=== PATIENT | female | born 1975 | race Caucasian/White ===

== ENCOUNTER → 2017-01-02 | Outpatient (CLI) | payer BC | END | disposition home or self-care (01) | LOC: LABWHC1 17:09 | PROVIDERS: ATTEND Clinical Nurse Specialist Women's Health | DX: N92.6 Irregular menstruation, unspecified (principal) | CPT/HCPCS: 36415; 83001 ==

== ENCOUNTER → 2018-01-21 | Outpatient (CLI) | payer BC ==
--- NOTE | 2018-01-25 07:57 | MM ---
Reason for exam: screening (asymptomatic). Last mammogram was performed 14 years and 11 months ago. History: Patient is nulliparous. Reductions of both breasts, 2015. Took hormonal contraceptives for 10 years. Physical Findings: A clinical breast exam by your physician is recommended on an annual basis and results should be correlated with mammographic findings. MG 3D Screening Mammo W/Cad Bilateral CC and MLO view(s) were taken. No prior studies available for comparison. There are scattered fibroglandular densities. No significant changes when compared with prior studies. ASSESSMENT: Benign, BI-RAD 2 RECOMMENDATION: Routine screening mammogram of both breasts in 1 year.
== END | disposition home or self-care (01) ==
LOC: RADMAMWWP 16:15
PROVIDERS: ATTEND Obstetrics & Gynecology
DX: Z12.31 Encounter for screening mammogram for malignant neoplasm of breast (principal)
CPT/HCPCS: 77063; 77067

== ENCOUNTER → 2019-02-22 | Outpatient (CLI) | payer BC ==
--- NOTE | 2019-02-24 11:31 | MM ---
Reason for exam: screening (asymptomatic). Last mammogram was performed 1 year and 1 month ago. History: Patient is nulliparous. Reductions of both breasts, 2015. Took hormonal contraceptives for 10 years. Physical Findings: A clinical breast exam by your physician is recommended on an annual basis and results should be correlated with mammographic findings. MG 3D Screening Mammo W/Cad Bilateral CC and MLO view(s) were taken. Prior study comparison: January 21, 2018, bilateral MG 3d screening mammo w/cad. March 07, 2003, bilateral diagnostic mammogram. There are scattered fibroglandular densities. ASSESSMENT: Incomplete: need additional imaging evaluation, BI-RAD 0 RECOMMENDATION: Ultrasound of the left breast. (palpable) Manage on a clinical basis with regard to palpable area. [facility] will attempt to contact patient to return for ultrasound.
== END | disposition home or self-care (01) ==
LOC: RADMAMWWP 16:40
PROVIDERS: ATTEND Family Medicine
DX: Z12.31 Encounter for screening mammogram for malignant neoplasm of breast (principal)
CPT/HCPCS: 77063; 77067

== ENCOUNTER → 2019-03-10 | Outpatient (CLI) | payer BC ==
--- NOTE | 2019-03-10 09:40 | USB ---
Reason for exam: additional evaluation requested from abnormal screening. History: Patient is nulliparous. Reductions of both breasts, 2015. Took hormonal contraceptives for 10 years. Indicated problem(s): lump or thickening in the left breast. Physical Findings: Nurse Summary: 1cm movable nodule in the left breast at 9 o'clock, 0.5cm movable nodule in the left breast at 6 o'clock and a 0.5cm nodule in the left breast at 6 o'clock (nurse cw). US Breast Workup LT Left complete breast ultrasound includes all four quadrants, the retroareolar region and axilla. Finding demonstrates a 6 x 2 x 5mm oval, hypoechoic lesion at 6 o'clock. These results were verbally communicated with the patient and result sheet given to the patient on 03/10/19. ASSESSMENT: Probably benign, BI-RAD 3 RECOMMENDATION: Ultrasound of the left breast in 6 months.
== END | disposition home or self-care (01) ==
LOC: RADUSWWP 08:15
PROVIDERS: ATTEND Family Medicine
DX: R92.8 Other abnormal and inconclusive findings on diagnostic imaging of breast (principal)

== ENCOUNTER → 2019-09-09 | Outpatient (CLI) | payer BC ==
--- NOTE | 2019-09-09 11:25 | USB ---
Reason for exam: clinical finding. History: Patient is nulliparous. Reductions of both breasts, 2015. Took hormonal contraceptives for 10 years. Indicated problem(s): palpable abnormality and lump or thickening in the left breast. Physical Findings: Nurse Summary: 6 o'clock 0.5cm, 12 o'clock 1.5cm (nurse dw). US Breast Limited LT Left limited breast ultrasound including focal area of concern, retroareolar and axilla demonstrates a 1.0 x 0.5 x 1.0cm angular, solid, vascular lesion at 7 o'clock, prior 0.6 x 0.2 x 0.5cm, enlarged, biopsy recommended and a 0.5 x 0.3 x 0.4cm angular, hypoechoic lesion at 10 o'clock, reassess at time of biopsy, cystic nature versus solid. Second biopsy may be necessary. These results were verbally communicated with the patient and result sheet given to the patient on 09/09/19. ASSESSMENT: Suspicious, BI-RAD 4 RECOMMENDATION: Ultrasound core biopsy of the left breast. Called Dr. Uriarte's office with mammographic findings and has scheduled an appointment for the patient for 10/27/19 at 10:[address] Coleamn. Biopsy schedueld for 10/04/19. PRELIMINARY REPORT CALLED AND FAXED TO DR. COLEMAN ON 09/09/19.
== END | disposition home or self-care (01) ==
LOC: RADUSWWP 07:05
PROVIDERS: ATTEND Obstetrics & Gynecology
DX: R92.8 Other abnormal and inconclusive findings on diagnostic imaging of breast (principal)

== ENCOUNTER → 2019-10-04 | Day surgery (SDC) | payer BC ==
[2019-10-04 11:39] VITALS: RESP 16; TEMP 97.6; BMI 36.3
[2019-10-04 13:17] VITALS: BP 110/70; PULSE 68
--- NOTE | 2019-10-07 14:17 | USB ---
US Breast Needle Core LT Radiologist: Hilario Lopez M.D. Radiologis ULTRASOUND GUIDED CORE BIOPSY LEFT BREAST LESIONS: CLINICAL HISTORY: Request for core biopsy of the left breast 7:00 and 10:00 lesions FINDINGS: The procedure was explained to the patient. The risks, complications, benefits and alternatives were discussed and any questions were answered. Informed consent was obtained. Patient was placed supine on the ultrasound table and prepped and draped in the usual sterile fashion. Utilizing a 25 gauge needle, five passes were made into each of the requested nodules. Clip was placed post biopsy for each nodule. Patient is and postprocedural mammogram was not performed. Patient was stable throughout the procedure. Pathology is pending. All elements of maximal barrier and sterile technique were utilized. IMPRESSION: 1. Successful ultrasound guided core biopsy of 2 left-sided breast nodules as requested. Pathology pending. Pathology Results: Benign A. LEFT BREAST, 7:00, ULTRASOUND GUIDED CORE BIOPSY: Lactating adenoma (nodular lactational hyperplasia). B. LEFT BREAST, 10:00, ULTRASOUND GUIDED CORE BIOPSY: Lactating adenoma (nodular lactational hyperplasia). RECOMMENDATION: Ultrasound of the left breast in 6 months. MTDD
== END ==
LOC: RADUSWWP 11:22
PROVIDERS: ATTEND Surgery
DX: O26.899 Other specified pregnancy related conditions, unspecified trimester (principal); D24.2 Benign neoplasm of left breast; Z3A.00 Weeks of gestation of pregnancy not specified
CPT/HCPCS: 88305; 19083; 19084; A4648; J2001

== ENCOUNTER 2020-03-01 15:41 | Inpatient (IN) | payer BC ==
[2020-03-01] MEDS ORDERED: LIDOCAINE 0.5% (PF) 5 MG/ML (50 ML SDV) SQ PRN (15:51)
[2020-03-01] MEDS ORDERED: TERBUTALINE 1 MG/ML VIAL SQ PRN (15:51)
[2020-03-01] MEDS ORDERED: CARBOPROST TROMETHAMINE 250 MCG/ML 1 ML AMP IM PRN (15:51)
[2020-03-01] MEDS ORDERED: OXYTOCIN 10 UNIT/ML 1 ML VIAL IM PRN (15:51)
[2020-03-01] MEDS ORDERED: METHYLERGONOVINE 0.2 MG/ML 1 ML AMP IM PRN (15:51)
[2020-03-01] MEDS: LACTATED RINGERS 1,000 ML IV SCH (16:08)
[2020-03-01 16:32] LABS: Basophils % (A) 0 %; Eosinophils # (A) 0.2 k/uL (0-0.7); Eosinophils % (A) 2 %; HCT 36.7 % (34.0-46.0); Lymphocytes % (A) 17 %; MCH 28.8 pg (25.0-35.0); MCHC 32.8 g/dL (31.0-37.0); MCV 87.9 fL (80.0-100.0); Mean Platelet Volume 8.7; Monocytes # (A) 0.5 k/uL (0-1.0); Monocytes % (A) 5 %; Neutrophils # (A) 8.5 k/uL (1.3-7.7); Neutrophils % (A) 75 %; Platelet Count 246 k/uL (150-450); RBC 4.18 m/uL (3.80-5.40); RDW 14.1 % (11.5-15.5); WBC 11.4 k/uL (3.8-10.6)
[2020-03-01] MEDS ORDERED: BUTORPHANOL 1 MG/ML 1 ML VIAL IV PRN (17:28)
--- NOTE | 2020-03-01 17:28 | P.HPOB ---
History of Present Illness H&P Date: 03/01/20 Chief Complaint: IUP at 40 3/7 weeks, PROM This is a 45-year-old 1 para 0 at 40-3/7 weeks with an estimated due date of 02/27/2020 that presents to labor and delivery with complaints of rupture of membranes clear in nature at 1430. Patient denies contractions at this time. Patient has been receiving routine care is been complicated by a fibroid uterus which has been being followed closely. Patient has known AMA elected genetic testing which was negative. Patient has a history of chronic hypertension that has been well controlled. Patient has been eating followed for SGA, last ultrasound revealing estimated weight to be in the 35th percentile with normal RAIN. On bloodwork patient has a blood type of O+, rubella immune, RPR nonreactive, hepatitis B surface antigen negative, HIV negative, GC/CT negative, she did fail her 1 hour gestational diabetes screen but subsequently passed her 3 hour. Informaseq test was noted to be negative. Patient had a negative group beta strep screen on 02/03/2020. Review of Systems Constitutional: Denies chills, Denies fatigue Ears, nose, mouth and throat: Denies headache Cardiovascular: Reports leg edema Respiratory: Denies dyspnea Gastrointestinal: Denies nausea, Denies vomiting Genitourinary: Reports Past Medical History Past Medical History: GERD/Reflux, Hypertension, Sleep Apnea/CPAP/BIPAP, Thyroid Disorder Additional Past Medical History / Comment(s): patient currently History of Any Multi-Drug Resistant Organisms: None Reported Past Surgical History: Breast Surgery Additional Past Surgical History / Comment(s): breast reduction 2002, Plantar faschitis surgery Past Anesthesia/Blood Transfusion Reactions: No Reported Reaction Past Psychological History: No Psychological Hx Reported Smoking Status: Never smoker Past Alcohol Use History: Occasional Additional Past Alcohol Use History / Comment(s): occassional when not Past Drug Use History: None Reported - Past Family History Mother Family Medical History: Cancer Medications and Allergies Home Medications Medication Instructions Recorded Confirmed Type Calcium Polycarbophil [Fibercon] 625 mg PO DAILY 09/19/19 03/01/20 History Labetalol [Trandate] 100 mg PO DAILY 09/19/19 03/01/20 History Omeprazole [PriLOSEC] 20 mg PO DAILY 09/19/19 03/01/20 History Pnv,Calcium 72/Iron/Folic Acid 1 each PO DAILY 09/19/19 03/01/20 History [ Plus Tablet] Thyroid,Pork [Medical Associate Thyroid] 60 mg PO DAILY 09/19/19 03/01/20 History Allergies Allergy/AdvReac Type Severity Reaction Status Date / Time No Known Allergies Allergy Verified 03/01/20 15:49 Exam Osteopathic Statement: *. No significant issues noted on an osteopathic structural exam other than those noted in the History and Physical/Consult. Vital Signs Temp Pulse Resp BP 03/01/20 15:48 97.4 F L 69 16 120/79 Intake and Output 03/01/20 03/01/20 03/01/20 06:59 14:59 22:59 Other: Weight 104.326 kg Targeted physical exam is performed in this date and director ship a well-nourished well-developed obese female in no acute distress, breathing is noted to be nonlabored, heart has regular rhythm, abdomen is gravid, on cervical exam she is fingertip/50/-3 soft and posterior. heart tones are noted to be category 1 and she is kirti irregularly. Results Result Diagrams: 03/01/20 16:08 Abnormal Lab Results - Last 24 Hours (Table) 03/01/20 Range/Units 16:08 WBC 11.4 H (3.8-10.6) k/uL Neutrophils # 8.5 H (1.3-7.7) k/uL Assessment and Plan (1) Post-dates Current Visit: Yes Status: Acute Code(s): O48.0 - POST-TERM SNOMED Code(s): 51270443 (2) PROM (premature rupture of membranes) Current Visit: Yes Status: Acute Code(s): O42.90 - TERESA ROM, 7TH0 BETW RUPT & ONST LABR, UNSP WEEKS OF GEST SNOMED Code(s): 52959096 Plan: Patient is admitted to labor and delivery for anticipated spontaneous vaginal delivery. Patient has noted clear fluid and negative group beta strep status therefore we will watch for onset of labor. If she should not go into labor on her own Pitocin augmentation of labor with will be begun. If she is ruptured at 12 hours we will plan to start antibiotics for prophylaxis
[2020-03-01] MEDS: OXYTOCIN 30 UNITS/500 ML NS 30 UNIT in SALINE 1 500ML.BAG IV SCH (20:27)
[2020-03-02] MEDS: LACTATED RINGERS 1,000 ML IV SCH ×2 (00:09→09:16)
[2020-03-02] MEDS ORDERED: AMPICILLIN 2,000 MG in SODIUM CHLORIDE 0.9% 100 ML IVPB STA (02:20)
[2020-03-02] MEDS: AMPICILLIN 1,000 MG in SODIUM CHLORIDE 0.9% 50 ML IVPB SCH ×2 (06:17→10:15)
[2020-03-02] MEDS: THYROID, PORK 30 MG TAB PO SCH (08:54)
[2020-03-02] MEDS ORDERED: CITRIC ACID-SODIUM CITRATE 15 ML CUP PO ONE ×2 (10:58→11:20)
[2020-03-02] MEDS ORDERED: NALBUPHINE 10 MG/ML (1 ML AMP) ONE (11:34)
[2020-03-02] MEDS ORDERED: OXYTOCIN 10 UNIT/ML 1 ML VIAL ONE (11:34)
[2020-03-02] MEDS ORDERED: ONDANSETRON 4 MG/2 ML VIAL ONE (11:34)
[2020-03-02] MEDS ORDERED: MORPHINE SULFATE (PF) 0.3 MG/0.3 ML SYR ONE (11:34)
[2020-03-02] MEDS ORDERED: ZOLPIDEM 5 MG TAB PO PRN (12:29)
[2020-03-02] MEDS ORDERED: diphenhydrAMINE 50 MG/ML 1 ML VIAL IVP PRN ×2 (12:29)
[2020-03-02] MEDS ORDERED: diphenhydrAMINE 25 MG CAP PO PRN (12:29)
[2020-03-02] MEDS ORDERED: METOCLOPRAMIDE 5 MG/ML 2 ML VIAL IVP PRN (12:29)
[2020-03-02] MEDS ORDERED: SIMETHICONE 80 MG CHEWABLE PO PRN (12:29)
[2020-03-02] MEDS ORDERED: HYDROcodone/APAP 5-325MG 1 EACH TAB PO PRN (12:29)
[2020-03-02] MEDS ORDERED: ACETAMINOPHEN IV (For NPO) 1,000 MG in EMPTY BAG 1 BAG IVPB ONE (12:29)
[2020-03-02] MEDS ORDERED: NALOXONE 0.4 MG/ML 1 ML VIAL IV PRN (12:29)
[2020-03-02] MEDS ORDERED: diphenhydrAMINE 50 MG CAP PO PRN (12:29)
[2020-03-02] MEDS ORDERED: ONDANSETRON 4 MG/2 ML VIAL IVP PRN (12:29)
[2020-03-02] MEDS ORDERED: OXYTOCIN 20 UNITS/1000 ML NS 1,000 ML IV SCH (12:30)
[2020-03-02] MEDS ORDERED: IBUPROFEN IV 800 MG in SODIUM CHLORIDE 0.9% 250 ML IV ONE (12:36)
--- NOTE | 2020-03-02 12:36 | P.OP ---
Date of Procedure: 03/02/20 Preoperative Diagnosis: IUP at 40 and 4/sevenths premature rupture of membranes, arrest of descent and dilation, prolonged rupture of membranes, AMA, Postoperative Diagnosis: Same Procedure(s) Performed: Primary low transverse section Anesthesia: spinal Surgeon: Blanca Swan Estimated Blood Loss (ml): 600 IV fluids (ml): 1,300 Urine output (ml): 100 Pathology: other (Placenta) Condition: stable Disposition: other Indications for Procedure: This pleasant 45-year-old 1 para 0 at 40-3/7 weeks presented to labor and delivery with complaints of rupture of membranes clear in nature at 1430. Patient was known GBS negative therefore after 6 hours of no change or contractions Pitocin augmentation of labor was begun. Patient made no change and at approximately 20 hours post-rupture of membranes primary was called secondary to arrest of first stage of labor. Patient was counseled on primary given no cervical exchange mechanic this time despite Pitocin augmentation of labor. Patient agreed and was taken back to the operating suite for section. Operative Findings: Normal uterus tubes and ovaries were appreciated viable female delivered at 1156, weight of 6 lbs. 9 oz. with Apgars of 9 and 9 at one and 5 minutes respectfully. Small fundal fibroid was noted. Description of Procedure: Patient was taken to the operating suite where spinal anesthesia was obtained without difficulty by the anesthesia department. She was prepped and draped in the normal sterile fashion in the dorsal supine position. A Pfannenstiel skin incision was made with the scalpel and carried through the underlying layer of fascia. The fascia was incised in the midline and the incision was extended laterally. The superior aspect of the fascial incision was then grasped with Latonia clamps, elevated and the underlying rectus muscle was dissected off sharply. The inferior aspect the fascial incision was then grasped with Anali clamps, elevated and underlying rectus muscles dissected off sharply once again. The rectus muscles were in the midline the peritoneum was identified and entered. This incision was then extended supe riorly and inferiorly with good visualization the bladder. The bladder blade was then inserted into the pelvis. The vesicouterine peritoneum was identified and the bladder flap was then created. The bladder blade was then reinserted into the pelvis. The scalpel was then used to perform a hysterotomy incision the was delivered in a vertex presentation in the usual fashion. The umbilical cord was doubly clamped and cut and the infant was handed off to awaiting RN. The placenta was then delivered manually and the uterus was cleared of all clots and debris. The uterus was then delivered from the abdomen. The hysterotomy incision was closed with 0 Vicryl in a running locked fashion 2. Bleeding was noted on the right-hand side of the uterus therefore a [id number] sutures were used to obtain hemostasis. The pelvis was then irrigated and the uterus was returned to the abdomen. The gutters were cleared of all clots and debris and hysterotomy incision was inspected once again hemostasis was appreciated. The peritoneum was then reapproximated loosely in the fascia was closed 0 Vicryl in a running fashion. The subcutaneous tissue was then irrigated and hemostatic. The subcutaneous tissue was then closed with 3-0 Vicryl. The skin was then closed with 4-0 Vicryl in a subcuticular fashion. Steri-Strips and sterile dressings were applied as needed. All counts are correct 2. Patient and tolerated delivery well and are resting comfortably.
[2020-03-03] MEDS: IBUPROFEN 600 MG TAB PO PRN ×4 (04:12→20:21)
--- NOTE | 2020-03-03 06:39 | P.PN ---
Progress Note - Text Progress Note Date: 03/03/20 S/p duramorph for caesarean section postop day 1 Patient seen a little before 7am 03/03/20 Doing well. Without complaint. Nausea yesterday immediately after section but resolved with benedryl. No vomiting/pruritis. VAS 0/10 overnight with patient only needing to start with motrin around 4am. Gross lower extremity strength intact. Able to void. Denies fever. Without apparent anesthetic complications.
[2020-03-03 07:45] LABS: Basophils % (A) 0 %; Eosinophils # (A) 0.2 k/uL (0-0.7); Eosinophils % (A) 2 %; HCT 32.6 % (34.0-46.0); HGB 10.5 gm/dL (11.4-16.0); Lymphocytes # (A) 1.9 k/uL (1.0-4.8); Lymphocytes % (A) 15 %; MCHC 32.4 g/dL (31.0-37.0); MCV 89.5 fL (80.0-100.0); Mean Platelet Volume 8.9; Monocytes # (A) 0.6 k/uL (0-1.0); Monocytes % (A) 5 %; Neutrophils # (A) 9.4 k/uL (1.3-7.7); Neutrophils % (A) 77 %; Platelet Count 211 k/uL (150-450); RBC 3.64 m/uL (3.80-5.40); RDW 14.1 % (11.5-15.5); WBC 12.3 k/uL (3.8-10.6)
[2020-03-03] MEDS: LABETALOL 100 MG TAB PO SCH ×2 (08:59→20:01)
[2020-03-03] MEDS: SENNOSIDES-DOCUSATE SODIUM 1 EACH TAB PO SCH ×3 (09:01→20:21)
[2020-03-03] MEDS: PANTOPRAZOLE 40 MG TABLET PO SCH ×2 (09:02→20:01)
[2020-03-03] MEDS: THYROID, PORK 30 MG TAB PO SCH (09:02)
[2020-03-03] MEDS: PRENATAL VIT-IRON-FOLIC ACID 1 EACH CAP PO SCH ×2 (09:02→17:30)
--- NOTE | 2020-03-03 10:59 | P.PN ---
Subjective Progress Note Date: 03/03/20 Principal diagnosis: Postoperative day #1 Slept well, positive flatus. No issues or complaints. Objective - Vital Signs Vital signs: Vital Signs Temp 98.0 F 03/03/20 08:00 Pulse 62 03/03/20 08:00 Resp 16 03/03/20 08:00 BP 125/69 03/03/20 08:00 Pulse Ox 95 03/02/20 23:31 Intake & Output 03/02/20 03/03/20 03/03/20 18:59 06:59 18:59 Output Total 700 500 Balance -700 -500 Output: Urine 300 500 Uretheral (Durand) 400 Estimated Blood Loss 400 Other: # Voids 0 1 0 - Constitutional General appearance: Present: cooperative, morbidly obese - EENT Eyes: Present: PERRLA ENT: Present: hearing grossly normal - Neck Neck: Present: normal ROM Thyroid: bilateral: normal size - Respiratory Respiratory: bilateral: CTA - Cardiovascular Rhythm: regular - Gastrointestinal General gastrointestinal: Present: normal bowel sounds - Genitourinary Genitourinary Comment(s): Fundus firm, midline, symmetric, 18 week size. Normal lochia rubra. - Neurologic Neurologic: Present: CNII-XII intact - Musculoskeletal Musculoskeletal: Present: gait normal, strength equal bilaterally - Psychiatric Psychiatric: Present: A&O x's 3, appropriate affect, intact judgment & insight - Labs CBC & Chem 7: 03/03/20 07:18 Labs: Abnormal Lab Results - Last 24 Hours (Table) 03/03/20 Range/Units 07:18 WBC 12.3 H (3.8-10.6) k/uL RBC 3.64 L (3.80-5.40) m/uL Hgb 10.5 L (11.4-16.0) gm/dL Hct 32.6 L (34.0-46.0) % Neutrophils # 9.4 H (1.3-7.7) k/uL Assessment and Plan Assessment: Doing well post operative day #1. Plan: Continue postoperative care. Advanced diet and activity. Likely discharge home tomorrow. Time with Patient: Less than 30
[2020-03-03] MEDS: LACTATED RINGERS 1,000 ML IV SCH ×4 (17:30→17:33)
[2020-03-03] MEDS: AMPICILLIN 1,000 MG in SODIUM CHLORIDE 0.9% 50 ML IVPB SCH ×3 (17:31→20:02)
[2020-03-03] MEDS: OXYTOCIN 30 UNITS/500 ML NS 30 UNIT in SALINE 1 500ML.BAG IV SCH (20:01)
[2020-03-03] MEDS: ACETAMINOPHEN TAB 325 MG TAB PO PRN (23:11)
[2020-03-04] MEDS: IBUPROFEN 600 MG TAB PO PRN ×2 (01:54→14:17)
[2020-03-04] MEDS: ACETAMINOPHEN TAB 325 MG TAB PO PRN (07:13)
[2020-03-04 07:40] VITALS: RESP 17
[2020-03-04] MEDS: THYROID, PORK 30 MG TAB PO SCH (08:56)
[2020-03-04] MEDS: SENNOSIDES-DOCUSATE SODIUM 1 EACH TAB PO SCH (08:57)
[2020-03-04] MEDS: LABETALOL 100 MG TAB PO SCH (08:57)
[2020-03-04] MEDS: PRENATAL VIT-IRON-FOLIC ACID 1 EACH CAP PO SCH (08:57)
[2020-03-04] MEDS: PANTOPRAZOLE 40 MG TABLET PO SCH (08:57)
--- NOTE | 2020-03-04 09:14 | P.DS ---
Providers Date of admission: 03/01/20 15:41 Expected date of discharge: 03/04/20 Attending physician: Kelby Uriarte Primary care physician: Stated None Hospital Course: This is a 45-year-old White female 1 para 0 EDC 02/27/2020 at 40-4/7 weeks' gestation. Patient presented with spontaneous amniorrhexis at home, clear fluid. Her history is significant for chronic hypertension, hypothyroidism, fibroid uterus and breast reduction. Group B strep cultures were negative. Please see dictated history and physical for details. Patient was admitted, epidural was placed per her request. Oxytocin was started and titrated per hospital protocol. Patient ultimately went on to deliver a liveborn female with scores of 9 and 9 at one and 5 minutes respectively. She was delivered by section for arrest of dilatation and descent. Infant weighed 6 lbs. 9 oz. or 2990 g. Please see dictated operative note for details. This morning the patient is doing well. She is voiding, ambulating, and passing flatus without difficulty. Vital signs are stable and she is afebrile. Fundus is firm and in the midline, symmetric and 18 week size. Extremities are negative for edema. Incision is clean and dry, intact, Steri-Strips applied. is doing well. Patient is judged to be in very good condition for discharge home. She will continue her labetalol 100 mg twice daily. She will continue vitamin daily. Patient will use [id number] Advil or Aleve, or Motrin as needed for pain. She will follow-up in the office in 2 weeks for incision check. I have reminded her no intercourse, tampons or douching. No car driving, no heavy lifting. She will call with any fevers shakes or chills, foul smelling or copious lochia, with the passage of large blood clots, with any redness pain or drainage of the incision, or indeed with any concerns. Patient Condition at Discharge: Good Plan - Discharge Summary Discharge Rx Participant: No New Discharge Prescriptions: No Action Thyroid,Pork [Sodium Methylate Operator Thyroid] 60 mg PO DAILY Pnv,Calcium 72/Iron/Folic Acid [ Plus Tablet] 1 each PO DAILY Omeprazole [PriLOSEC] 20 mg PO DAILY Labetalol [Trandate] 100 mg PO DAILY Calcium Polycarbophil [Fibercon] 625 mg PO DAILY Discharge Medication List Calcium Polycarbophil [Fibercon] 625 mg PO DAILY 09/19/19 [History] Labetalol [Trandate] 100 mg PO DAILY 09/19/19 [History] Omeprazole [PriLOSEC] 20 mg PO DAILY 09/19/19 [History] Pnv,Calcium 72/Iron/Folic Acid [ Plus Tablet] 1 each PO DAILY 09/19/19 [History] Thyroid,Pork [Sodium Methylate Operator Thyroid] 60 mg PO DAILY 09/19/19 [History] Follow up Appointment(s)/Referral(s): Kelby Uriarte MD [STAFF PHYSICIAN] - 2 Weeks Discharge Disposition: HOME SELF-CARE
[2020-03-04 15:51] VITALS: BP 127/74; PULSE 64; TEMP 98.1
== END 2020-03-04 17:20 | disposition home or self-care (01) | DRG 788 ==
LOC: 4FBP 15:41
PROVIDERS: ADMIT Obstetrics & Gynecology Obstetrics; ATTEND Obstetrics & Gynecology
DX: O42.92 Full-term premature rupture of membranes, unspecified as to length of time between rupture and onset of labor (principal); O48.0 Post-term pregnancy; O62.0 Primary inadequate contractions; O62.1 Secondary uterine inertia; Z3A.40 40 weeks gestation of pregnancy; Z37.0 Single live birth; O34.13 Maternal care for benign tumor of corpus uteri, third trimester; O36.5930 Maternal care for other known or suspected poor fetal growth, third trimester, not applicable or unspecified; D25.9 Leiomyoma of uterus, unspecified; E03.9 Hypothyroidism, unspecified; O99.284 Endocrine, nutritional and metabolic diseases complicating childbirth; O16.4 Unspecified maternal hypertension, complicating childbirth; Z79.890 Hormone replacement therapy
CPT/HCPCS: 85025; 86850; 86900; 86901

== ENCOUNTER → 2021-02-18 | Outpatient (CLI) | payer BC ==
--- NOTE | 2021-02-20 11:32 | MM ---
Reason for exam: additional evaluation requested from prior study. Last mammogram was performed 2 years ago. History: Patient had first child at age 45. Benign US breast needle core LT of the left breast, October 04, 2019. Benign US breast needle core addl LT of the left breast, October 04, 2019. Reductions of both breasts, 2015. Took hormonal contraceptives for 10 years. Physical Findings: Nurse Summary: 0.5cm nodule in the right breast at 6 o'clock (nurse juan). MG 3D Diag Mammo W/Cad JAY Bilateral CC and MLO view(s) were taken. Prior study comparison: February 22, 2019, bilateral MG 3d screening mammo w/cad. January 21, 2018, bilateral MG 3d screening mammo w/cad. There are scattered fibroglandular densities. Previous mammotome biopsy in the left breast x 2. Left early fat necrosis or dystrophic calcifications now present at 6 o'clock. Palpable marker placed by the nurse on the left just posteriorly at 6 o'clock. These results were verbally communicated with the patient and result sheet given to the patient on 02/18/21. ASSESSMENT: Incomplete: need additional imaging evaluation, BI-RAD 0 RECOMMENDATION: Ultrasound of the left breast.
== END | disposition home or self-care (01) ==
LOC: RADMAMWWP 14:26
PROVIDERS: ATTEND Obstetrics & Gynecology
DX: Z12.31 Encounter for screening mammogram for malignant neoplasm of breast (principal); R92.8 Other abnormal and inconclusive findings on diagnostic imaging of breast
CPT/HCPCS: 77062; 77066

== ENCOUNTER → 2021-02-18 | Outpatient (CLI) | payer BC ==
--- NOTE | 2021-02-20 11:35 | USB ---
Reason for exam: additional evaluation requested from abnormal screening. History: Patient had first child at age 45. Benign US breast needle core LT of the left breast, October 04, 2019. Benign US breast needle core addl LT of the left breast, October 04, 2019. Reductions of both breasts, 2015. Took hormonal contraceptives for 10 years. US Breast Limited LT Left limited breast ultrasound including focal area of concern, retroareolar and axilla demonstrates no cystic or solid lesion seen. Scanned 6-12 o'clock. The previously biopsied lesions have resolved. No abnormality seen at the nurse palpated 6 o'clock site. 6 month follow up mammogram for suspected early fat necrosis calcifications. These results were verbally communicated with the patient and result sheet given to the patient on 02/18/21. ASSESSMENT: Probably benign, BI-RAD 3 RECOMMENDATION: Follow-up diagnostic mammogram of the left breast in 6 months.
== END | disposition home or self-care (01) ==
LOC: RADUSWWP 14:30
PROVIDERS: ATTEND Surgery
DX: R92.8 Other abnormal and inconclusive findings on diagnostic imaging of breast (principal)

== ENCOUNTER → 2021-07-31 | Outpatient (CLI) | payer BC ==
--- NOTE | 2021-07-31 08:48 | MM ---
Reason for exam: follow-up at short interval from prior study. Last mammogram was performed 5 months ago. History: Patient had first child at age 45. Benign US breast needle core LT of the left breast, October 04, 2019. Benign US breast needle core addl LT of the left breast, October 04, 2019. Reductions of both breasts, 2002. Took hormonal contraceptives for 10 years. Physical Findings: Nurse did not find any significant physical abnormalities on exam. MG 3D Diag Mammo W/Cad LT CC and MLO view(s) were taken of the left breast. Prior study comparison: February 18, 2021, bilateral MG 3d diag mammo w/cad JAY. February 22, 2019, bilateral MG 3d screening mammo w/cad. The breast tissue is heterogeneously dense. This may lower the sensitivity of mammography. Stable benign calcifications. Previous mammotome biopsy in the left breast. No significant new findings when compared with previous films. These results were verbally communicated with the patient and result sheet given to the patient on 07/31/21. ASSESSMENT: Benign, BI-RAD 2 RECOMMENDATION: Routine screening mammogram of both breasts in 6 months. Back on schedule for January 2022.
== END | disposition home or self-care (01) ==
LOC: RADMAMWWP 07:04
PROVIDERS: ATTEND Surgery
DX: R92.1 Mammographic calcification found on diagnostic imaging of breast (principal); R92.2 Inconclusive mammogram
CPT/HCPCS: 77061; 77065

== ENCOUNTER → 2021-07-31 | Outpatient (CLI) | payer BC ==
--- NOTE | 2021-07-31 08:36 | US ---
EXAMINATION TYPE: US renal artery duplex complete DATE OF EXAM: 07/31/2021 COMPARISON: NONE CLINICAL HISTORY: I10 Hypertension. MEASUREMENTS: RENAL SIZE: Rt Kidney: 9.1 x 3.9 x 4.8cm Lt Kidney: 11.9 x 5.4 x 5.2cm RESISTANCE INDEX Right: 0.56 Left: 0.69 RA/AO RATIO (< 3.5 ) Right: 1.6 Left: 0.9 RA VELOCITY ( < 180 cm/s) Right: 143 Left: 80 Left kidney measures larger than right. No evidence of renal artery stenosis. IMPRESSION: No evidence for renal artery stenosis at this time.
== END | disposition home or self-care (01) ==
LOC: RADUSWWP 07-22 13:18
PROVIDERS: ATTEND Internal Medicine Clinical Cardiac Electrophysiology
DX: I10 Essential (primary) hypertension (principal)
CPT/HCPCS: 93975

== ENCOUNTER → 2021-08-02 | Outpatient (CLI) | payer BC | END | disposition home or self-care (01) | LOC: LABWHC1 15:00 | PROVIDERS: ATTEND Family Medicine | DX: Z11.52 Encounter for screening for COVID-19 (principal); Z20.822 Contact with and (suspected) exposure to COVID-19 | CPT/HCPCS: U0003; U0005 ==

== ENCOUNTER → 2022-03-28 | Outpatient (CLI) | payer BC ==
--- NOTE | 2022-03-31 11:33 | MM ---
Reason for exam: screening (asymptomatic). Last mammogram was performed 8 months ago. History: Patient had first child at age 45. Benign US breast needle core LT of the left breast, October 04, 2019. Benign US breast needle core addl LT of the left breast, October 04, 2019. Reductions of both breasts, 2003. Taking hormonal contraceptives beginning at age 46. Physical Findings: A clinical breast exam by your physician is recommended on an annual basis and results should be correlated with mammographic findings. MG 3D Screening Mammo W/Cad Bilateral CC and MLO view(s) were taken. Prior study comparison: July 31, 2021, left breast MG 3d diag mammo w/cad LT. February 18, 2021, bilateral MG 3d diag mammo w/cad JAY. The breast tissue is heterogeneously dense. This may lower the sensitivity of mammography. Finding: There are typically benign grouped/clustered calcifications in the anterior position of the left breast. Previous mammotome biopsy in the left breast. There is no discrete abnormality. ASSESSMENT: Benign, BI-RAD 2 RECOMMENDATION: Routine screening mammogram of both breasts in 1 year.
== END | disposition home or self-care (01) ==
LOC: RADMAMWWP 08:01
PROVIDERS: ATTEND Obstetrics & Gynecology
DX: Z12.31 Encounter for screening mammogram for malignant neoplasm of breast (principal)
CPT/HCPCS: 77063; 77067

== ENCOUNTER → 2023-07-03 | Outpatient (CLI) | payer BC ==
--- NOTE | 2023-07-06 07:42 | MM ---
Reason for Exam: Screening (asymptomatic). Last mammogram was performed 1 year(s) and 3 month(s) ago. Patient History: Menarche at age 13. First Full-Term at age 45. Late child-bearing (after 30). Currently using Hormonal Contraceptives, starting at age 46. 2003, Bilateral Reduction. 10/04/2019, Benign Core Biopsy on the left side. 10/04/2019, Benign Core Biopsy on the left side. Risk Values: Joy 5 year model risk: 3.1%. NCI Lifetime model risk: 21.2%. Prior Study Comparison: 02/18/2021 Bilateral Diagnostic Mammogram, [facility]. 07/31/2021 Left Diagnostic Mammogram, [facility]. 03/28/2022 Bilateral Screening Mammogram, [facility]. Tissue Density: The breast tissue is heterogeneously dense. This may lower the sensitivity of mammography. Findings: Analyzed By CAD. Left breast biopsy clip. There is no suspicious group of microcalcifications or new suspicious mass in either breast. Overall Assessment: Negative, BI-RAD 1 Management: Screening Mammogram of both breasts in [address] [facility] will attempt to contact patient to return for supplemental views and ultrasound if indicated. Patient should continue monthly self-breast exams. A clinical breast exam by your physician is recommended on an annual basis. This exam should not preclude additional follow-up of suspicious palpable abnormalities. Note on Joy scores and lifetime risk: 1. A Joy score greater than 3% is considered moderate risk. If this is the case, consider specialist referral to assess eligibility for a risk reducing agent. 2. If overall lifetime risk for the development of breast cancer is 20% or higher, the patient may qualify for future screening with alternating mammogram and breast MRI. Electronically signed and approved by: Chet Heck DO
== END | disposition home or self-care (01) ==
LOC: RADMAMWWP 15:02
PROVIDERS: ATTEND Obstetrics & Gynecology
DX: Z12.31 Encounter for screening mammogram for malignant neoplasm of breast (principal)
CPT/HCPCS: 77063; 77067

== ENCOUNTER → 2024-07-14 | Outpatient (CLI) | payer BC ==
--- NOTE | 2024-08-01 18:26 | MM ---
Reason for Exam: Screening (asymptomatic). Last screening mammogram was performed 12 month(s) ago. Patient History: Menarche at age 13. First Full-Term at age 45. Late child-bearing (after 30). Currently using Hormonal Contraceptives, starting at age 46. 2003, Bilateral Reduction. 10/04/2019, Benign Core Biopsy on the left side. 10/04/2019, Benign Core Biopsy on the left side. Risk Values: Joy 5 year model risk: 2.9%. NCI Lifetime model risk: 20.7%. Prior Study Comparison: 07/31/2021 Left Diagnostic Mammogram, [facility]. 03/28/2022 Bilateral Screening Mammogram, [facility]. 07/03/2023 Bilateral MG 3D screening mammo w/cad, [facility]. Tissue Density: There are scattered areas of fibroglandular density. Findings: Analyzed By CAD. 2 microclips from prior biopsy within the left breast. There is no suspicious group of microcalcifications or new suspicious mass in either breast. Overall Assessment: Benign, BI-RAD 2 Management: Screening Mammogram of both breasts in 1 year. SEE NOTE BELOW IN REGARDS TO PATIENT'S INCREASED LIFETIME RISK SCORE. Patient should continue monthly self-breast exams. A clinical breast exam by your physician is recommended on an annual basis. This exam should not preclude additional follow-up of suspicious palpable abnormalities. Note on Joy scores and LIFETIME RISK: 1. A Joy score greater than 3% is considered moderate risk. If this is the case, consider specialist referral to assess eligibility for a risk reducing agent. 2. IF OVERALL LIFETIME RISK FOR THE DEVELOPMENT OF BREAST CANCER IS 20% OR HIGHER, THE PATIENT MAY QUALIFY FOR FUTURE SCREENING WITH ALTERNATING MAMMOGRAM AND BREAST MRI. Electronically signed and approved by: Tanya Finn M.D. Radiologist
== END | disposition home or self-care (01) ==
LOC: RADMAMWWP 08:56
PROVIDERS: ATTEND Obstetrics & Gynecology
DX: Z12.31 Encounter for screening mammogram for malignant neoplasm of breast (principal); R92.323 Mammographic fibroglandular density, bilateral breasts
CPT/HCPCS: 77063; 77067